=== PATIENT | female | born 1995 ===

== ENCOUNTER → 2021-05-20 | Outpatient (CLI) | payer SELFPAY ==
[2021-05-22 04:08] LABS: CHLAMYDIA TRACHOMATIS, NAA Negative (Negative)
== END | disposition home or self-care (01) ==
LOC: LAB SHORT 13:44
PROVIDERS: Advanced Practice Midwife
DX: Z11.3 Encounter for screening for infections with a predominantly sexual mode of transmission (principal)
CPT/HCPCS: 87491; 87591

== ENCOUNTER → 2021-11-11 | Outpatient (CLI) | payer SELFPAY | END | disposition home or self-care (01) | LOC: LAB 18:55 → LAB SHORT 18:55 | DX: H92.02 Otalgia, left ear (principal) | CPT/HCPCS: 87070; 87106; 87205 ==